=== PATIENT | female | born 1990 | race Caucasian/White ===

== ENCOUNTER 2022-05-31 07:10 | Emergency (ER) | payer BC, SELFPAY ==
[2022-05-31 07:22] VITALS: BP 119/74; PULSE 69; RESP 18; TEMP 36.4; O2SAT 99; BMI 32.9
--- NOTE | 2022-05-31 07:41 | ED_ITS ---
HPI - URI/Sore Throat General Time Seen by Provider: 07:40 Date Seen: 05/31/22 Chief Complaint: Shortness of Breath/Dyspnea Stated Complaint: Upper Respiratory Infection,pain in throat Time Seen by Provider: 05/31/22 07:14 Source: patient Mode of arrival: ambulatory Limitations: no limitations History of Present Illness HPI Narrative: Patient is a 31-year-old female presents here with a feeling in her throat and some shortness of breath. She feels some clear discharge from her nose, she has had no fevers no chills, there is no color to her discharge from her nose. She does not feel she is wheezing, she has a mild cough associated with this. He has had this multiple times in the past, and they told her to get allergy tested. She has tried Flonase and Azucena also for this. MD elicited complaint: sore throat, rhinorrhea and nasal congestion Pertinent past history: asthma Onset (ago): day(s) Consistency: constant Severity: moderate Description of mucous: watery Able to tolerate fluids by mouth: Yes Exacerbating factors: deep breaths Relieving factors: nothing Associated symptoms: rhinorrhea, nasal congestion, sore throat and shortness of breath Treatments prior to arrival: none Related Data Home Medications Medication Instructions Recorded Confirmed No Known Home Medications 05/31/22 05/31/22 Allergies Allergy/AdvReac Type Severity Reaction Status Date / Time Penicillins Allergy Intermediate Difficulty Verified 05/31/22 07:30 Breathing oxycodone Allergy Mild Verified 05/31/22 07:21 Review of Systems Status of ROS: Reports: 10 or more systems reviewed and unremarkable except as noted in History and below [facility] Medical History Asthma Social History Smoking Status: Unknown if ever smoked Do you use any of these nicotine containing products: None Second hand tobacco smoke exposure: No How often do you have a drink containing alcohol: monthly or less AUDIT-C Alcohol total score: 1 Non-prescribed substance use: denies use Exam Narrative: Exam Narrative: Patient is peaking normally, problem with slurring words, oriented x3. Head eyes ears nose and throat exam show equal pupils, no scleral icterus, extraocular muscles are normal, no facial droop, speech is normal, trachea normal and midline. Thyroid normal midline palpable not enlarged. Chest shows symmetrical rise bilaterally, normal auscultation with no wheezes, no increased work of breathing, no overt bruising or lesions seen, no tenderness is noted on auscultation. Heart sounds normal with no S3-S4 no murmurs clicks or gallops. Abdomen shows no obvious masses or hepatosplenomegaly, no organomegaly, bowel sounds are normal in all quadrants. No tenderness is noted also in all quadrants. Upper and lower extremities show normal power, normal range of motion, pulses are normal, sensations normal, fine motor movements are normal, pelvis is stable to rocking. Cervical spine shows normal range of motion, and palpably not tender. Thoracic spine shows normal range of motion, and palpably not tender, lumbar spine shows no tenderness to palpation percussion and is otherwise normal range of motion. Skin shows no rashes, petechiae or eccymosis. Const: Vital Signs, click to edit/add: Vital Signs - 24 hr 05/31/22 07:22 Temperature 97.6 F Pulse Rate [Left P ulse Oximeter] 69 Respiratory Rate 18 Blood Pressure [Ri ght Upper Arm] 119/74 Pulse Oximetry 99 Documenting provider has reviewed patient's vital signs: yes Common normals: no apparent distress Course Vital Signs Vital signs: Initial Vital Signs Temperature 97.6 F 05/31/22 07:22 Temperature Source Temporal Artery Scan 05/31/22 07:22 Pulse Rate 69 05/31/22 07:22 Respiratory Rate 18 05/31/22 07:22 Blood Pressure 119/74 05/31/22 07:22 Blood Pressure Mean 89 05/31/22 07:22 Pulse Oximetry 99 05/31/22 07:22 Oxygen Delivery Method 05/31/22 07:22 Vital Signs Temperature 97.6 F 05/31/22 07:22 Pulse Rate 69 05/31/22 07:22 Respiratory Rate 18 05/31/22 07:22 Blood Pressure 119/74 05/31/22 07:22 Pulse Oximetry 99 05/31/22 07:22 Temperature 97.6 F 05/31/22 07:22 Pulse Rate 69 05/31/22 07:22 Respiratory Rate 18 05/31/22 07:22 Blood Pressure 119/74 05/31/22 07:22 Pulse Oximetry 99 05/31/22 07:22 MDM - URI/Sore Throat MDM Narrative Medical decision making narrative: Life-threatening differential diagnosis includes occluded COPD exacerbation, pulmonary edema, acute coronary syndromes, pulmonary embolism, pneumonia, and pneumothorax. Other differential diagnosis considerations include asthma, bronchitis as well as other etiologies Medical Records Attestation: I reviewed the patient's medical records. Medical records narrative: Reviewing the patient's medical record from our institution, there seems severe predominant history of anxiety is what I am seeing here today. She also has a history of depression, panic attacks, hypothyroidism, allergic rhinitis, asthma, bronchitis, bronchospasm, cystitis, wax in her ear, irritation of her eye, otitis media, sinus congestion, UTI Discharge Plan Discharge Clinical Impression: PND (post-nasal drip) Allergic rhinitis Qualifiers: Allergic rhinitis trigger: unspecified Allergic rhinitis seasonality: unspecified Qualified Code(s): J30.9 - Allergic rhinitis, unspecified Patient Disposition: Home, Self-Care Condition: Stable Instructions: Allergic Rhinitis (ED), Allergies (ED) Additional Instructions: Home rest reassurance given. I think a strong component of this is anxiety along with the allergic rhinitis. I would try the Flonase inhaler as directed, Srinivasan D, consider getting tested for allergies. Your examination is entirely normal there is no evidence of any infectious etiology no evidence of any limitation of breathing or swelling. You could try the inhaler also there is a defect of drying out her nasal passages. Follow-up with her primary care physician if ongoing concerns Prescriptions: No Action No Known Home Medications 0RF Stand Alone Forms: [employer] Info Instructions
== END 2022-05-31 08:22 | disposition home or self-care (01) ==
PROVIDERS: Emergency Provider Family Medicine; PCP Family Medicine
DX: J30.9 Allergic rhinitis, unspecified (principal)
CPT/HCPCS: 99282; 99283

== ENCOUNTER 2022-06-22 20:55 | Emergency (ER) | payer BC, SELFPAY ==
[2022-06-22 21:02] VITALS: BP 122/68; PULSE 79; RESP 16; TEMP 36.4; O2SAT 100; BMI 34.8
--- NOTE | 2022-06-22 21:18 | ED.NURSE ---
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 pt tearful about throat, updated. 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
--- NOTE | 2022-06-22 21:34 | ED_ITS ---
HPI - General Adult General Time Seen by Provider: 21:34 Date Seen: 06/22/22 Chief complaint: Shortness of Breath/Dyspnea Stated complaint: Breathing problems Time Seen by Provider: 06/22/22 21:13 Source: patient, RN notes reviewed and old records reviewed Mode of arrival: ambulatory Limitations: no limitations History of Present Illness HPI narrative: Keily is a 31-year-old female coming in complaining of difficulty swallowing, feeling like food gets stuck, feeling like her throat in the center of her neck has been swollen all week. She states she has felt hot but has not documented a fever. She states her ears crackle at times. She has felt short of breath. When I come in she is continually sign and deep breathing. She is sitting there quietly in speaks quite softly. She talks about having anxiety medicine and depression medicine that she was put on for about a week and it is not helping. She states she usually gets prednisone in some time she has got a shot in her butt. When asked her when was the last time it sounds as if it was this spring possibly here. She was down in [place] for about a month ago. She does recollect that she has seen an ENT a couple years ago on the did look down with the scope. She remembers sitting in a chair. I reviewed with her her multiple visits with us over upper respiratory type symptoms, sore throat, sense of difficulty breathing are getting enough air. She states again that they put her on that anxiety medicine and eating disorder as part of it. There is depression too. She wanted to make sure I knew this. Just sitting and talking to her she totally strikes me as having anxiety although she is speaking calmly. She tells me her throat socks in in the center when she is breathing. She does state that she has had some difficulty swallowing at times. She states she can eat ice cream fine. She is eating ice chips when I come into the room. She does endorse having history of asthma but tells me they have subsequently told her she does not have asthma. She told nursing that she is out of albuterol. She does not think she has been exposed to COVID or have any symptoms of COVID. She states she has also had nausea the last few days without any vomiting or abdominal pain. No other changes in abdominal symptoms. Onset (ago): day(s) Related Data Home Medications Medication Instructions Recorded Confirmed albuterol sulfate 90 mcg/actuation INHALATION 06/22/22 aerosol inhaler (Ventolin HFA) escitalopram oxalate 10 mg tablet mg 06/22/22 fluticasone 250 mcg-salmeterol 50 INHALATION 06/22/22 mcg/dose blistr powdr for inhalation (Advair Diskus) nicotine 7 mg/24 hr daily 06/22/22 transdermal patch Allergies Allergy/AdvReac Type Severity Reaction Status Date / Time Penicillins Allergy Intermediate Difficulty Verified 05/31/22 07:30 Breathing oxycodone Allergy Mild Verified 05/31/22 07:21 Review of Systems Status of ROS: Reports: 6 or more systems reviewed and unremarkable except as noted in History and below [facility] Medical History Asthma Social History Smoking Status: Current some day smoker How often do you have a drink containing alcohol: monthly or less AUDIT-C Alcohol total score: 1 Non-prescribed substance use: denies use Exam Const: Vital Signs, click to edit/add: Vital Signs - 24 hr 06/22/22 21:02 Temperature 97.5 F L Pulse Rate [Left P ulse Oximeter] 79 Respiratory Rate 16 Blood Pressure [Ri ght Upper Arm] 122/68 Pulse Oximetry 100 Documenting provider has reviewed patient's vital signs: yes Common normals: no apparent distress, average body habitus, oriented x3, no reeves itations, healthy appearing and alert General appearance: cooperative, well kempt and anxious Nutritional appearance: overweight Or ientation/consciousness: Yes awake HENMT: Common normals: normocephalic, head/scalp atraumatic, hearing grossly normal bilaterally, external ears normal, EAC's normal, TM's normal bilaterally, external nose normal, nasal mucous membranes and turbinates normal, moist oral mucous membranes, oropharynx normal, dentition normal and gingiva normal Head and scalp: normal to inspection, normocephalic and atraumatic Face and sinus: normal facial exam Nose: external nose normal and nasal mucous membranes and turbinates normal External ear: external ears normal External auditory canal: EAC's normal Tympanic membrane: TM's normal bilaterally Eye: Common normals: PERRL, EOMs intact bilaterally, conjunctivae normal and no scleral icterus Conjunctiva: conjunctiva(e) normal Pupil: PERRL Neck & C-Spine: Common normals: full ROM, no lymphadenopathy, supple, no meningeal signs, no JVD and thyroid normal Thyroid: thyroid normal Chest: Common normals: inspection of chest normal Resp: Common normals: normal respiratory effort (But is noted to be taking frequent deep breath), no retractions, no use of accessory muscles and clear to auscultation bilaterally Auscultation: clear to auscultation bilaterally Cardio: Common normals: no JVD, regular rate, regular rhythm, S1 normal heart sound, S2 normal heart sound, no gallops, no clicks and no murmurs Rate: regular rate Rhythm: regular rhythm Heart sounds: S1 normal and S2 normal GI: Common normals: Normal to inspection, nondistended, normoactive bowel sounds present, soft to palpation and non-tender Palpation: soft Neuro: Common normals: oriented x3 Sensorium/orientation: awake and alert Meningeal signs: no meningeal signs Psych: Appearance: well kempt Course Reevaluation(s) Reevaluation #1: Had discussion with patient regarding her symptoms. She is on escitalopram and reviewed with her it will take longer than a week for it to be effective. She does feels like she is sucking in at the base of her neck and having difficulty eating. She is having difficulty swallowing medications because she feels like they are getting stuck. Reviewed foods to avoid and the fact that she needs to follow up next week to discuss getting an EGD she really is having dysphagia. I cannot get her 1 here tonight nor over the weekend. If she does have a food bolus impaction she will need re-evaluation and likely need to be sent somewhere emergently to have this taking care of this we do not have emergency endoscopy services. She feels like she would benefit from prednisone. I have tried to dissuade her from use but she states she is out of albuterol in her insurance will not let her fill it until the 09 of July. The she is probably over used her inhaler. Tried to reassure her that she is breathing fine there is no physi leo or clinical evidence that she is having any difficulty or swelling. She just is really adamant about the prednisone. I went over risks and problems with too much use of steroids and the ill side effects that can happen. She really does want a prescription and thus I will give her the 5 day course from [facility]. Time: 22:02 Vital Signs Vital signs: Initial Vital Signs Temperature 97.5 F L 06/22/22 21:02 Temperature Source Temporal Artery Scan 06/22/22 21:02 Pulse Rate 79 06/22/22 21:02 Respiratory Rate 16 06/22/22 21:02 Blood Pressure 122/68 06/22/22 21:02 Blood Pressure Mean 86 06/22/22 21:02 Blood Pressure Position Sitting 06/22/22 21:02 Pulse Oximetry 100 06/22/22 21:02 Oxygen Delivery Method 06/22/22 21:02 Vital Signs Temperature 97.5 F L 06/22/22 21:02 Pulse Rate 79 06/22/22 21:02 Respiratory Rate 16 06/22/22 21:02 Blood Pressure 122/68 06/22/22 21:02 Pulse Oximetry 100 06/22/22 21:02 Temperature 97.5 F L 06/22/22 21:02 Pulse Rate 79 06/22/22 21:02 Respiratory Rate 16 06/22/22 21:02 Blood Pressure 122/68 06/22/22 21:02 Pulse Oximetry 100 06/22/22 21:02 Critical Care Time Critical Care Time Critical Care Time: No Discharge Plan Discharge Clinical Impression: Dysphagia, Difficulty breathing Condition: Stable Instructions: Dysphagia (ED) Additional Instructions: Can take the prednisone for your breathing as prescribed although I do not feel you needed. Get her albuterol filled as soon as your insurance will allow you. Need to follow up with her primary care provider next week to discuss the dysphagia in further workup of this. Please review handout and dietary recommendations within it. Activity Level: Activity as Tolerated Prescriptions: No Action fluticasone propion-salmeterol [Advair Diskus] 250-50 mcg/dose blister with device INHALATION 0RF Label Comments: INHALE 1 PUFF BY MOUTH 2 TIMES DAILY. albuterol sulfate [Ventolin HFA] 90 mcg/actuation HFA aerosol inhaler INHALATION 0RF nicotine 7 mg/24 hr patch 24 hour 0RF Label Comments: APPLY 1 PATCH ON DRY, CLEAN, HAIRLESS SKIN ONCE DAILY. escitalopram oxalate 10 mg tablet 0RF Label Comments: TAKE 1 TABLET (10 MG) BY MOUTH ONCE DAILY. Follow Up/Referrals: Carlos Townsend DO [Primary Care Provider] - Stand Alone Forms: [employer] Info Instructions
[2022-06-22] MEDS: KETOROLAC 30 MG/ML inj 15 MG IM (22:20)
== END 2022-06-22 22:26 | disposition home or self-care (01) ==
LOC: ED 22:08
PROVIDERS: Emergency Provider Family Medicine; PCP Family Medicine
DX: R13.10 Dysphagia, unspecified (principal); R06.89 Other abnormalities of breathing
CPT/HCPCS: 96372; 99283; 99284; J1885

== ENCOUNTER 2022-07-16 13:31 | Emergency (ER) | payer BC, SELFPAY ==
[2022-07-16 13:37] VITALS: BP 105/60; PULSE 82; RESP 18; TEMP 36.4; O2SAT 99; BMI 32.9
[2022-07-16 15:10] VITALS: BP 107/55; PULSE 67; RESP 18; TEMP 36.2; O2SAT 100; BMI 32.9
--- NOTE | 2022-07-16 15:56 | CRLHL7_ITS ---
For Patients: As a result of the Cures Act, medical imaging exams and procedure reports are released immediately into your electronic medical record. You may view this report before your referring provider. If you have questions, please contact your health care provider. INDICATION: Cough, right-sided chest pain for 1 week. TECHNIQUE: Chest 2 views. COMPARISON: February 19, 2022. FINDINGS: Cardiovascular and mediastinum: Heart size and vasculature are normal in caliber and appearance. Lungs and pleural spaces: Lungs are clear. No sign of pleural effusion. No pneumothorax. Bones and soft tissues: No significant findings. IMPRESSION: No acute findings and no significant changes from the prior exam. Dictated by Dio Naik MD @ 07/16/2022 5:36:44 PM (Electronically Signed)
--- NOTE | 2022-07-16 16:00 | ED_ITS ---
HPI - General Adult General Chief complaint: Ear/Nose/Throat Problem Stated complaint: Left ear infection Time Seen by Provider: 07/16/22 15:39 History of Present Illness HPI narrative: 32-year-old woman presenting to the emergency department with complaint of a painful draining left ear. History is a little difficult to obtain apparently had some blood draining from the ear. Subsequently placed hydrogen peroxide and water in the ear in the form of an [id number] preparation. Notes having more discomfort and hearing popping. No purulent drainage described. Left- sided facial area pain demonstrates around her ear. She describes some swelling of the muscle in the area at some point. She has not been swimming. Sounds as though tried phenylephrine to clear some drainage which did help her nose. She has felt hots and chills. No measured fevers described.She describes her throat as feeling swollen. Sounds like sore as well. She says that she has been having some right-sided chest pain for a week. Worse with movement as well as breathing. Coughing especially causes pain. Sounds like head post-tussive emesis yesterday. Was nauseated 2 days ago. It is unclear to me on my review of records whether not there is truly a diagnosis of asthma. Has received inhalers in the past. Has been vaccinated for COVID. She has not had COVID that she knows of. When asked further about potential exposures she does acknowledge it is not working currently. I asked her what she is most worried about, it appears that would like to know whether she can be tested for an upper respiratory infection. I discussed potential treatments and evaluation. She would like some ibuprofen along with some applesauce. Return to give her apple sauce and find her crying. says that everything is fine. Thanks for asking. She has some symptoms written on a paper for me. These complaints overall seems similar to ER visit in June. Related Data Home Medications Medication Instructions Recorded Confirmed albuterol sulfate 90 mcg/actuation 1 puff inhalation 06/22/22 aerosol inhaler (Ventolin HFA) escitalopram oxalate 10 mg tablet mg 06/22/22 fluticasone 250 mcg-salmeterol 50 1 inh inhalation 06/22/22 mcg/dose blistr powdr for inhalation (Advair Diskus) nicotine 7 mg/24 hr daily 1 patch 06/22/22 transdermal patch Previous Rx's Medication Instructions Recorded prednisone 20 mg tablet 40 mg PO DAILY 5 days #10 tabs 07/16/22 Allergies Allergy/AdvReac Type Severity Reaction Status Date / Time Penicillins Allergy Intermediate Difficulty Verified 07/16/22 13:41 Breathing oxycodone Allergy Mild Verified 07/16/22 13:41 Review of Systems Status of ROS: Reports: 6 or more systems reviewed and unremarkable except as noted in History and below [facility] Medical History Asthma Social History Smoking Status: Current some day smoker What tobacco products do you use: cigarettes How often do you have a drink containing alcohol: monthly or less AUDIT-C Alcohol total score: 1 Non-prescribed substance use: denies use Exam Narrative: Exam Narrative: Pleasant. Generally blunted or flat affect. Breathing easily though at times will take a deeper breath. Skin is warm and dry. No rash or inflammation on the face appreciated. There is no facial swelling. She is not tender to palpation. Small amount of cerumen in the right ear the left with some ryan cerumen a I think adjacent to the tympanic membrane. I do not see any inflammatory changes. she is not tender to movement of the pinnae or tragus. I do not see inflammatory changes in the ear canal. She does note tenderness though the placement of the ear speculum. neck is supple without LA oropharynx is normal and moist without inflammatory changes. There is no stridor. Lungs are clear. No wheeze, no stridor. Equal expansion excursion. Cardiovascular with regular rate and rhythm. Moving all extremities without difficulty. Well perfused peripherally. No edema appreciated. Const: Vital Signs, click to edit/add: Vital Signs - 24 hr 07/16/22 13:37 07/16/22 15:10 Temperature 97.5 F L 97.2 F L Pulse Rate [Right Pulse Oximeter] 82 67 Respiratory Rate 18 18 Blood Pressure [Ri ght Upper Arm] 105/60 107/55 L Pulse Oximetry 99 100 Oxygen Delivery Me thod Room Air Room Air Documenting provider has reviewed patient's vital signs: yes Course Course Hospital Course: was given ibuprofen. See HPI-- later in course able to ruefully smile otherwise again generally flatter affect but moved to tears at one point. Notes herself to be somewhat improved. Vital Signs Vital signs: Initial Vital Signs Temperature 97.5 F L 07/16/22 13:37 Temperature Source Temporal Artery Scan 07/16/22 13:37 Pulse Rate 82 07/16/22 13:37 Pulse Rhythm 07/16/22 13:37 Respiratory Rate 18 07/16/22 13:37 Blood Pressure 105/60 07/16/22 13:37 Blood Pressure Mean 75 07/16/22 13:37 Blood Pressure Position Sitting 07/16/22 13:37 Pulse Oximetry 99 07/16/22 13:37 Oxygen Delivery Method 07/16/22 13:37 Vital Signs Temperature 97.5 F L 07/16/22 13:37 Pulse Rate 82 07/16/22 13:37 Respiratory Rate 18 07/16/22 13:37 Blood Pressure 105/60 07/16/22 13:37 Pulse Oximetry 99 07/16/22 13:37 Oxygen Delivery Method 07/16/22 13:37 Temperature 97.2 F L 07/16/22 15:10 Pulse Rate 67 07/16/22 15:10 Respiratory Rate 18 07/16/22 15:10 Blood Pressure 107/55 L 07/16/22 15:10 Pulse Oximetry 100 07/16/22 15:10 Oxygen Delivery Method 07/16/22 15:10 Medical Decision Making MDM Narrative Medical decision making narrative: Given the duration of chest discomfort on think it is unreasonable to do some imaging check a D-dimer. CBC as we are drawing blood. Other differential would include pulmonary embolus, pneumonia, pneumothorax, pleuritis, costochondritis, chest wall strain. Normal white count, normal D-dimer, COVID negative. Chest x-ray reviewed by me is unremarkable. ordered for pseudoephedrine and prednisone prior to departure Lab Data Labs: Lab Results 07/16/22 07/16/22 07/16/22 Range/Units 16:00 16:20 16:20 WBC 10.73 (4.50-11.00) K/uL RBC 3.85 L (4.00-5.20) m/uL Hgb 11.5 L (12.0-16.0) gm/dL Hct 35.2 (33.0-51.0) % MCV 91 (80-100) fL MCH 30 (26-34) pg MCHC 33 (32-36) gm/dL RDW Coeff of Megan 14.0 (11.5-15.5) % Plt Count 334 (140-440) K/uL Neut % (Auto) 65.4 (42.0-72.0) % Lymph % (Auto) 24.9 (20-44) % [place] % (Auto) 5.8 (0.0-11.0) % Eos % (Auto) 2.6 (0.0-7.0) % Baso % (Auto) 1.0 (0.0-3.0) % Neut # (Auto) 7.02 H (1.7-7.0) K/uL Lymph # (Auto) 2.67 (0.90-2.90) K/uL [place] # (Auto) 0.60 (0.00-0.90) K/UL Eos # (Auto) 0.28 (0.00-0.50) K/uL Baso # (Auto) 0.11 (0.00-0.30) K/uL Abs Immat Gran (auto) 0.03 (0.00-0.30) K/uL D-Dimer Quant (PE/DVT) 0.39 (0.00-0.50) ug/ml SARS-CoV-2 (PCR) Negative SARS-CoV-2 (Negative) Discharge Plan Discharge Clinical Impression: URI (upper respiratory infection), Air hunger, Bronchitis Patient Disposition: Home, Self-Care Condition: Improved Additional Instructions: focus on hydration. Can take pseudoephedrine for decongestion. Does come in some long-acting formulations. 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 Might sleep under the mist of cool mist humidifier. Menthol vapors? Prescriptions: New prednisone 20 mg tablet 40 mg PO DAILY 5 Days Qty: 10 0RF No Action fluticasone propion-salmeterol [Advair Diskus] 250-50 mcg/dose blister with device 1 inh INHALATION Label Comments: INHALE 1 PUFF BY MOUTH 2 TIMES DAILY. albuterol sulfate [Ventolin HFA] 90 mcg/actuation HFA aerosol inhaler 1 puff INHALATION nicotine 7 mg/24 hr patch 24 hour 1 patch Label Comments: APPLY 1 PATCH ON DRY, CLEAN, HAIRLESS SKIN ONCE DAILY. escitalopram oxalate 10 mg tablet Label Comments: TAKE 1 TABLET (10 MG) BY MOUTH ONCE DAILY. Follow Up/Referrals: Carlos Townsend DO [Primary Care Provider] - Stand Alone Forms: [employer] Info Instructions
[2022-07-16] MEDS: IBUPROFEN 400 MG TABLET 800 MG PO (16:41)
[2022-07-16 16:47] LABS: Basophils Absolute Auto 0.11 K/uL (0.00-0.30); Eosinophils Absolute Auto 0.28 K/uL (0.00-0.50); Eosinophils Percent Auto 2.6 % (0.0-7.0); Hematocrit 35.2 % (33.0-51.0); Hemoglobin* 11.5 gm/dL (12.0-16.0); Immature Granulocytes Abs Auto 0.03 K/uL (0.00-0.30); Lymphocytes Absolute Auto 2.67 K/uL (0.90-2.90); Lymphocytes Percent Auto 24.9 % (20-44); Mean Corpuscular HGB Conc 33 gm/dL (32-36); Mean Corpuscular Hemoglobin 30 pg (26-34); Mean Corpuscular Volume 91 fL (80-100); Monocytes Percent Auto 5.8 % (0.0-11.0); Neutrophils Absolute Auto 7.02 K/uL (1.7-7.0); Neutrophils Percent Auto 65.4 % (42.0-72.0); Platelet Count* 334 K/uL (140-440); Red Blood Count 3.85 m/uL (4.00-5.20); White Blood Count* 10.73 K/uL (4.50-11.00)
[2022-07-16 16:48] LABS: Slide Review Reflex No
[2022-07-16 16:52] LABS: D Dimer Quantitative* 0.39 ug/ml (0.00-0.50)
[2022-07-16 17:15] LABS: SARS PCR* Negative SARS-CoV-2 (Negative)
[2022-07-16] MEDS: PSEUDOEPHEDRINE HCL 30 MG TABLET PO (17:53)
[2022-07-16] MEDS: predniSONE 20 MG TABLET 60 MG PO (17:53)
== END 2022-07-16 17:58 | disposition home or self-care (01) ==
PROVIDERS: Emergency Provider Family Medicine; PCP Family Medicine
DX: J06.9 Acute upper respiratory infection, unspecified (principal); J40 Bronchitis, not specified as acute or chronic
CPT/HCPCS: 36415; 71046; 85025; 85379; 87635; 99283; 99284; A9270; J7512

== ENCOUNTER 2022-09-29 16:02 | Emergency (ER) | payer BC, SELFPAY ==
[2022-09-29 16:48] VITALS: BP 107/71; PULSE 84; RESP 18; TEMP 36.4; O2SAT 98; BMI 32.9
[2022-09-29 20:22] VITALS: O2SAT 98
--- NOTE | 2022-09-29 20:24 | ED_ITS ---
HPI - SOB/Dyspnea General Chief Complaint: Shortness of Breath/Dyspnea Stated Complaint: CHEST PAIN,DIFFICULTY BREATHING Time Seen by Provider: 09/29/22 20:11 History of Present Illness HPI Narrative: 32-year-old woman presenting to the emergency department complaint of right- sided chest pain has been present intermittently over the last week. Work with deep inspiration. She also describes what was he talking in the middle of her throat when she was breathing and swelling generally in her neck and sore to turn her neck and particularly on the right side of her neck. Has difficult the feeling like she is getting a full breath. No fever. She does have some content nasal congestion. She has had some cough particularly when she lays down flat but she describes lying on her stomach and having to turn her head to the side. Does not have any trouble swallowing but she says that some visit recently somebody apparently told her not to eat bread or cake. She has not had any esophageal impaction. Does not endorse any leg swelling or pain. No palpitations described. I have seen Ms. Yen and believe that portion of symptoms are related to anxiety and psychogenic air hunger. No history of blood clots no pneumothorax. Apparently has had some wheezing or asthma diagnosis but she says that ?they took my inhaler is maybe that she was having trouble getting it filled? She has not been wheezing now. Ask a number of times what she thinks might be going on or of what she might be fearful and she answers with more symptoms. Apparently took ibuprofen acetaminophen. Related Data Home Medications Medication Instructions Recorded Confirmed albuterol sulfate 90 mcg/actuation 1 puff inhalation 06/22/22 aerosol inhaler (Ventolin HFA) escitalopram oxalate 10 mg tablet mg 06/22/22 fluticasone 250 mcg-salmeterol 50 1 inh inhalation 06/22/22 mcg/dose blistr powdr for inhalation (Advair Diskus) nicotine 7 mg/24 hr daily 1 patch 06/22/22 transdermal patch Previous Rx's Medication Instructions Recorded prednisone 20 mg tablet 40 mg PO DAILY 5 days #10 tabs 07/16/22 Allergies Allergy/AdvReac Type Severity Reaction Status Date / Time Penicillins Allergy Intermediate Difficulty Verified 07/16/22 13:41 Breathing oxycodone Allergy Mild Verified 07/16/22 13:41 Review of Systems Status of ROS: Reports: 10 or more systems reviewed and unremarkable except as noted in History and below [facility] Medical History Asthma Social History Smoking Status: Current some day smoker What tobacco products do you use: cigarettes How often do you have a drink containing alcohol: monthly or less AUDIT-C Alcohol total score: 1 Non-prescribed substance use: denies use Exam Narrative: Exam Narrative: Appears NAD. Quite calm. She is. Takes periodically breaths and demonstration. Touches or neck. Flatter affect. Appears mildly anxious. Skin is warm and dry. Well perfused peripherally and extremities are without edema. Lungs are clear equal expansion excursion. Cardiovascular was regular rate and rhythm no murmur rub or gallop. Abdomen is soft nontender. Examination of the back does show a major source of tenderness in the right periscapular/rhomboids. She has described little sore as well into the right upper chest. Neck on the right side also more sore than the left mid and anterior. Oropharynx is unremarkable the maybe a little cobblestoning. No facial swelling erythema or tenderness. She does not actually seem or sound congested to me. Neck is supple. No supraclavicular crepitus. Const: Vital Signs, click to edit/add: Vital Signs - 24 hr 09/29/22 16:48 09/29/22 20:22 Temperature 97.5 F L Pulse Rate [Right Pulse Oximeter] 84 Respiratory Rate 18 Blood Pressure [Ri ght Upper Arm] 107/71 Pulse Oximetry 98 98 Oxygen Delivery Me thod Room Air Documenting provider has reviewed patient's vital signs: yes Course Course Hospital Course: I suspect that still with some degree of psychogenic air hunger and anxiety though appears to have more of a chest wall issue. This could be extending into the musculature of the neck. However will do one view chest x-ray and screening labs embolus pneumothorax, anemia. Reevaluation(s) Reevaluation #1: Unchanged but no significant distress. Appears reassured with workup here today. Vital Signs Vital signs: Initial Vital Signs Temperature 97.5 F L 09/29/22 16:48 Temperature Source Temporal Artery Scan 09/29/22 16:48 Pulse Rate 84 09/29/22 16:48 Respiratory Rate 18 09/29/22 16:48 Blood Pressure 107/71 09/29/22 16:48 Blood Pressure Mean 83 09/29/22 16:48 Blood Pressure Position Sitting 09/29/22 16:48 Pulse Oximetry 98 09/29/22 16:48 Oxygen Delivery Method 09/29/22 16:48 Vital Signs Temperature 97.5 F L 09/29/22 16:48 Pulse Rate 84 09/29/22 16:48 Respiratory Rate 18 09/29/22 16:48 Blood Pressure 107/71 09/29/22 16:48 Pulse Oximetry 98 09/29/22 16:48 Oxygen Delivery Method 09/29/22 16:48 Temperature 98.7 F 09/29/22 22:14 Pulse Rate 63 09/29/22 22:14 Respiratory Rate 16 09/29/22 22:14 Blood Pressure 98/62 09/29/22 22:14 Pulse Oximetry 98 09/29/22 21:47 Oxygen Delivery Method 09/29/22 21:47 MDM - SOB/Dyspnea MDM Narrative Medical decision making narrative: Chest x-ray reviewed by me is unremarkable without evidence of pneumothorax or infiltrate. Normal mediastinum. Labs are unremarkable. Given normal D-dimer doubtful significant pulmonary embolus. Medical Records Attestation: I reviewed the patient's medical records. Lab Data Attestation: I reviewed the patient's lab results. Labs: Lab Results 09/29/22 09/29/22 09/29/22 Range/Units 20:30 20:30 20:30 Hgb 12.9 (12.0-16.0) gm/dL D-Dimer Quant (PE/DVT) 0.27 (0.00-0.50) ug/ml Sodium 139 (135-149) mmol/L Potassium 3.7 (3.6-5.1) mmol/L Chloride 103 (96-114) mmol/L Carbon Dioxide 24 (20-32) mmol/L BUN 18 (5-24) mg/dL Creatinine 0.9 (0.5-1.5) mg/dL Estimated Creat Clear 71.63 Estimated GFR 88 ml/min Glucose 81 (60-115) mg/dL Calcium 9.1 (8.4-10.6) mg/dL Discharge Plan Discharge Clinical Impression: Chest wall pain, Rhomboid muscle pain Patient Disposition: Home, Self-Care Condition: Stable Additional Instructions: I think you can continue with ibuprofen or acetaminophen as needed. See handout for stretches and exercises to work out your upper back. Stronger muscles tend to get less sore. I do think you should go home and eat some cake. Prescriptions: No Action fluticasone propion-salmeterol [Advair Diskus] 250-50 mcg/dose blister with device 1 inh INHALATION Label Comments: INHALE 1 PUFF BY MOUTH 2 TIMES DAILY. albuterol sulfate [Ventolin HFA] 90 mcg/actuation HFA aerosol inhaler 1 puff INHALATION nicotine 7 mg/24 hr patch 24 hour 1 patch Label Comments: APPLY 1 PATCH ON DRY, CLEAN, HAIRLESS SKIN ONCE DAILY. escitalopram oxalate 10 mg tablet Label Comments: TAKE 1 TABLET (10 MG) BY MOUTH ONCE DAILY. prednisone 20 mg tablet 40 mg PO DAILY 5 Days Qty: 10 0RF Follow Up/Referrals: Carlos Townsend DO [Primary Care Provider] - Stand Alone Forms: [facility] Info Instructions
--- NOTE | 2022-09-29 20:24 | CRLHL7_ITS ---
For Patients: As a result of the Cures Act, medical imaging exams and procedure reports are released immediately into your electronic medical record. You may view this report before your referring provider. If you have questions, please contact your health care provider. INDICATION: Right chest pain and shortness breath.. TECHNIQUE: Chest 1 view. COMPARISON: July 16, 2022. FINDINGS: Cardiovascular and mediastinum: Cardiomediastinal silhouette is within normal limits. Lungs and pleural spaces: Lungs are clear. No evidence of pleural effusion. No pneumothorax identified. Bones and soft tissues: Unremarkable. IMPRESSION: No acute cardiopulmonary process identified. No significant interval change. Dictated by Dio Naik MD @ 09/29/2022 9:17:01 PM (Electronically Signed)
[2022-09-29 20:35] LABS: Hemoglobin* 12.9 gm/dL (12.0-16.0)
[2022-09-29 20:49] LABS: Chloride* 103 mmol/L (96-114); Potassium* 3.7 mmol/L (3.6-5.1); Sodium* 139 mmol/L (135-149)
[2022-09-29 20:52] LABS: Blood Urea Nitrogen* 18 mg/dL (5-24); Calcium* 9.1 mg/dL (8.4-10.6); Carbon Dioxide* 24 mmol/L (20-32); Creatinine* 0.9 mg/dL (0.5-1.5); Est. Creatinine Clearance* 71.63; Estimated Glomerular Filt Rate 88 ml/min; Glucose* 81 mg/dL (60-115)
[2022-09-29 20:53] LABS: D Dimer Quantitative* 0.27 ug/ml (0.00-0.50)
[2022-09-29 21:47] VITALS: BP 98/62; PULSE 63; RESP 16; TEMP 37.1; O2SAT 98
[2022-09-29 22:14] VITALS: BP 98/62; PULSE 63; RESP 16; TEMP 37.1
== END 2022-09-29 22:15 | disposition home or self-care (01) ==
PROVIDERS: Emergency Provider Family Medicine; PCP Family Medicine
DX: S29.012A Strain of muscle and tendon of back wall of thorax, initial encounter (principal)
CPT/HCPCS: 36415; 71045; 80048; 85018; 85379; 94761; 99284